=== PATIENT | female | born 1950 | race Caucasian/White ===

== ENCOUNTER 2024-04-21 07:26 | Inpatient (IN) | payer OTHER ==
[~2024-04-21] VITALS: Ht 160 cm; Wt 83.0 kg
[2024-04-21] MEDS ORDERED: ACETAMINOPHEN 500 MG TABLET ONE ×2 (07:44→07:45)
[2024-04-21] MEDS ORDERED: CELECOXIB 100 MG CAPSULE ONE (07:44)
[2024-04-21] MEDS ORDERED: oxyCODONE HCL 10 MG TAB.ER.12H PO ONE (07:45)
[2024-04-21] MEDS ORDERED: CEFAZOLIN SOD 2 GM in D5W 50 ML IV ONE (07:45)
[2024-04-21] MEDS ORDERED: GABAPENTIN 300 MG CAPSULE PO ONE (07:45)
[2024-04-21] MEDS ORDERED: SCOPOLAMINE HYDROBROMIDE 1 MG PATCH .72 H (TRANSDERM-SCOP) TD ONE (07:45)
[2024-04-21] MEDS: ACETAMINOPHEN 500 MG TABLET PO ONE (08:23)
[2024-04-21] MEDS: CELECOXIB 100 MG CAPSULE PO ONE (08:23)
[2024-04-21] MEDS: GABAPENTIN 300 MG CAPSULE ONE (08:23)
[2024-04-21] MEDS: SCOPOLAMINE HYDROBROMIDE 1 MG PATCH .72 H (TRANSDERM-SCOP) TD ONE (08:23)
[2024-04-21 08:58] VITALS: PULSE 78; RESP 20; TEMP 98.7; O2SAT 99
[2024-04-21] MEDS: oxyCODONE HCL 10 MG TAB.ER.12H PO ONE (09:44)
[2024-04-21] MEDS ORDERED: DEXAMETHASONE SOD PHOSPHATE 4 MG/ML VIAL ONE (09:50)
[2024-04-21] MEDS ORDERED: LR 1,000 ML IV SCH (10:45)
[2024-04-21] MEDS ORDERED: HYDROmorphone 1 MG/ML INJ. CARTRIDGE IVP PRN ×3 (10:45→11:00)
[2024-04-21] MEDS ORDERED: MEPERIDINE HCL/PF 25 MG/ML DISP.SYRIN IVP PRN (10:45)
[2024-04-21] MEDS ORDERED: METOCLOPRAMIDE HCL 10 MG/2 ML VIAL IVP PRN ×2 (10:45→12:15)
[2024-04-21] MEDS ORDERED: LORATADINE 10 MG TABLET PO PRN (11:00)
[2024-04-21] MEDS ORDERED: oxyCODONE HCL 5 MG TABLET PO PRN ×2 (11:00)
[2024-04-21] MEDS ORDERED: traMADol HCL HCL 50 MG TABLET (ULTRAM) PO PRN (11:00)
[2024-04-21] MEDS ORDERED: ceFAZolin SODIUM 2 GM in D5W 50 ML IV SCH (11:15)
[2024-04-21] MEDS ORDERED: ONDANSETRON HCL 4 MG/2 ML VIAL IVP PRN (11:45)
[2024-04-21 12:15] VITALS: BP_SYST 144
[2024-04-21] MEDS ORDERED: BISACODYL 10 MG/SUPPOSITORY RC PRN (12:15)
[2024-04-21] MEDS ORDERED: NALOXONE HCL 0.4 MG/ML AMP (NARCAN) IVP PRN ×3 (12:15)
[2024-04-21] MEDS ORDERED: LACTULOSE 20 GM/30 ML UDC PO PRN (12:15)
[2024-04-21] MEDS ORDERED: DIPHENHYDRAMINE HCL 25 MG CAPSULE PO PRN (12:15)
[2024-04-21] MEDS ORDERED: HYDROmorphone 1 MG/ML INJ. CARTRIDGE ONE ×2 (12:58→14:54)
[2024-04-21] MEDS: HYDROmorphone 1 MG/ML INJ. CARTRIDGE IVP PRN ×2 (13:00→15:30)
[2024-04-21] MEDS ORDERED: ACETAMINOPHEN 500 MG TABLET PO SCH (14:00)
[2024-04-21] MEDS ORDERED: KETOROLAC TROMETHAMINE 10 MG TABLET (TORADOL) PO SCH (14:00)
[2024-04-21] MEDS ORDERED: SENNOSIDES/DOCUSATE SODIUM 1 TAB TABLET(SENOKOT-S) PO SCH (21:00)
[2024-04-22] MEDS ORDERED: ASPIRIN 81 MG TAB.CHEW PO SCH (09:00)
[2024-04-22] MEDS ORDERED: CELECOXIB 200 MG CAPSULE PO SCH (11:00)
== END 2024-04-21 15:45 | disposition home health service (06) | DRG 470 ==
LOC: SMU 07:26
PROVIDERS: ADMIT Student in an Organized Health Care Education/Training Program; ATTEND Student in an Organized Health Care Education/Training Program
PROC: 0SRC0J9 Replacement of Right Knee Joint with Synthetic Substitute, Cemented, Open Approach (ICD-10-PCS; principal; 2024-04-21 09:52)
DX: M17.11 Unilateral primary osteoarthritis, right knee (principal); Z79.899 Other long term (current) drug therapy
CPT/HCPCS: 73560; 87081; 88305; 88311; 97110-GP; 97116-GP; 97530-GP; C1776; J0690; J0696; J1100; J1170; J2405; J3010; J3370; J3465; J3490; J7060; J7120

== ENCOUNTER 2024-05-06 10:36 | Emergency (ER) | payer OTHER ==
[~2024-05-06] VITALS: Ht 160 cm; Wt 83.0 kg
[2024-05-06 10:56] VITALS: BP_SYST 118; PULSE 87; RESP 16; TEMP 97.5; O2SAT 97
[2024-05-06 11:28] LABS: BASOPHILS # (AUTO) 0.1 K/uL (0.0-0.2); BASOPHILS % (AUTO) 0.9 % (0.0-2.0); EOSINOPHILS # (AUTO) 0.2 K/uL (0.0-0.4); EOSINOPHILS % (AUTO) 2.9 % (0.0-4.0); HEMATOCRIT 34.5 % (36-48); HEMOGLOBIN 11.4 g/dL (12.0-16.0); LYMPHOCYTES # (AUTO) 1.4 K/uL (1.0-5.5); LYMPHOCYTES % (AUTO) 21.3 % (20.5-51.5); MEAN CORPUSCULAR HEMOGLOBIN 30 pg (27-31); MEAN CORPUSCULAR HGB CONC 33 % (32-36); MEAN CORPUSCULAR VOLUME 92 fL (79.0-98.0); MONOCYTES # (AUTO) 0.6 K/uL (0.0-1.0); MONOCYTES % (AUTO) 9.1 % (1.7-9.3); NEUTROPHILS # (AUTO) 4.2 K/uL (1.8-7.7); NEUTROPHILS % (AUTO) 65.8 % (40.0-70.0); PLATELET COUNT (AUTO) 397 K/uL (130-430); RED BLOOD CELL COUNT(AUTO) 3.76 MIL/uL (4.2-6.2); RED CELL DISTRIBUTION WIDTH 15.7 % (9.0-15.0); WHITE BLOOD COUNT (AUTO) 6.4 K/uL (4.8-10.8)
[2024-05-06 11:32] LABS: ERYTHROCYTE SEDIMENTATION RATE 73 MM/HR (0-20)
[2024-05-06] MEDS ORDERED: CEPH-548 PO (13:11)
[2024-05-06] MEDS: cefTRIAXone 1 GM VIAL IM ONE (13:27)
[2024-05-06 13:35] VITALS: BP_SYST 118; PULSE 87; RESP 16; TEMP 97.5; O2SAT 97
== END 2024-05-06 13:35 | disposition home or self-care (01) ==
LOC: SED 10:36
DX: L03.115 Cellulitis of right lower limb (principal)
CPT/HCPCS: 99285; 93971; 85025; 85651; 36415; 96372; 82397; J0696

== ENCOUNTER 2024-05-29 15:30 | Inpatient (IN) | payer OTHER ==
[~2024-05-29] VITALS: Ht 160 cm; Wt 83.1 kg
[~2024-05-29 15:30] MED LIST: CEPH-548 PO
[2024-05-29 15:50] VITALS: BP_SYST 139; PULSE 93; RESP 18; TEMP 98.3; O2SAT 98
[2024-05-29] MEDS ORDERED: AMPICILLIN SODIUM/SULBACTAM NA 3 GM VIAL ONE (21:03)
[2024-05-29] MEDS ORDERED: VANCOMYCIN HCL 1000 MG/VIAL IV ONE (21:04)
[2024-05-29] MEDS: KETOROLAC TROMETHAMINE 30 MG VIAL IVP ONE (21:06)
[2024-05-29] MEDS: AMPICILLIN SODIUM/SULBACTAM NA 3 GM in NS 100 ML IV ONE (21:06)
[2024-05-29 21:09] LABS: BASOPHILS # (AUTO) 0.1 K/uL (0.0-0.2); BASOPHILS % (AUTO) 1.5 % (0.0-2.0); EOSINOPHILS # (AUTO) 0.3 K/uL (0.0-0.4); EOSINOPHILS % (AUTO) 4.4 % (0.0-4.0); HEMATOCRIT 29.6 % (36-48); HEMOGLOBIN 10.2 g/dL (12.0-16.0); LYMPHOCYTES # (AUTO) 1.9 K/uL (1.0-5.5); MEAN CORPUSCULAR HEMOGLOBIN 32 pg (27-31); MEAN CORPUSCULAR HGB CONC 35 % (32-36); MEAN CORPUSCULAR VOLUME 92 fL (79.0-98.0); MONOCYTES # (AUTO) 0.7 K/uL (0.0-1.0); MONOCYTES % (AUTO) 11.4 % (1.7-9.3); NEUTROPHILS # (AUTO) 3.1 K/uL (1.8-7.7); NEUTROPHILS % (AUTO) 51.7 % (40.0-70.0); PLATELET COUNT (AUTO) 232 K/uL (130-430); RED BLOOD CELL COUNT(AUTO) 3.22 MIL/uL (4.2-6.2); RED CELL DISTRIBUTION WIDTH 17.1 % (9.0-15.0); WHITE BLOOD COUNT (AUTO) 6.1 K/uL (4.8-10.8)
[2024-05-29 21:27] LABS: ALANINE AMINOTRANSFERASE 66 U/L (12-78); ALBUMIN 3.1 g/dL (3.4-4.8); ANION GAP 9 (5-15); ASPARTATE AMINOTRANSFERASE 26 U/L (10-37); BILIRUBIN,DIRECT 0.1 mg/dL (0.0-0.3); CALCIUM 9.3 mg/dL (8.4-11.0); CARBON DIOXIDE 26 mmol/L (23-29); CHLORIDE 108 mmol/L (98-107); CREATININE 0.99 mg/dL (0.55-1.30); GLUCOSE 85 mg/dL (74-106); POTASSIUM 4.2 mmol/L (3.5-5.1); SODIUM SERUM 143 mmol/L (136-145); TOTAL BILIRUBIN 0.4 mg/dL (0.0-1.0); TOTAL PROTEIN, SERUM 6.3 g/dL (6.4-8.3); UREA NITROGEN, BLOOD 26 mg/dL (8-21)
[2024-05-29] MEDS: VANCOMYCIN HCL 1,000 MG in NS 250 ML IV ONE (21:31)
[2024-05-29] MEDS ORDERED: ONDANSETRON HCL 4 MG/2 ML VIAL IVP PRN (22:00)
[2024-05-29] MEDS ORDERED: MORPHINE 2 MG/ML INJ. SYRINGE IVP PRN (22:00)
[2024-05-29 22:30] VITALS: BP_SYST 147; PULSE 75; RESP 18; TEMP 98.7; O2SAT 99
[2024-05-30] VITALS (8 sets, daily range): BP systolic 123–147; PULSE 75–85; RESP 15–18; TEMP 97.1–98.7; O2SAT 94–99
[2024-05-30] MEDS ORDERED: ALBUTEROL SULFATE 0.083% 2.5 MG/3 ML VIAL.NEB INH PRN (00:45)
[2024-05-30] MEDS: NACL 0.9% 1,000 ML IV SCH (01:27)
[2024-05-30] MEDS: hydrALAZINE HCL 20 MG/ML VIAL IVP PRN (01:32)
[2024-05-30] MEDS: AMPICILLIN SODIUM/SULBACTAM NA 1.5 GM VIAL ONE (05:20)
[2024-05-30] MEDS: AMPICILLIN SODIUM/SULBACTAM NA 1.5 GM in NS 50 ML IV SCH (05:26)
[2024-05-30 11:42] LABS: BASOPHILS # (AUTO) 0.1 K/uL (0.0-0.2); BASOPHILS % (AUTO) 1.7 % (0.0-2.0); EOSINOPHILS # (AUTO) 0.2 K/uL (0.0-0.4); EOSINOPHILS % (AUTO) 3.6 % (0.0-4.0); HEMATOCRIT 31.2 % (36-48); HEMOGLOBIN 10.2 g/dL (12.0-16.0); LYMPHOCYTES # (AUTO) 1.2 K/uL (1.0-5.5); LYMPHOCYTES % (AUTO) 24.1 % (20.5-51.5); MEAN CORPUSCULAR HEMOGLOBIN 31 pg (27-31); MEAN CORPUSCULAR HGB CONC 33 % (32-36); MONOCYTES # (AUTO) 0.6 K/uL (0.0-1.0); MONOCYTES % (AUTO) 11.8 % (1.7-9.3); NEUTROPHILS # (AUTO) 2.9 K/uL (1.8-7.7); NEUTROPHILS % (AUTO) 58.8 % (40.0-70.0); PLATELET COUNT (AUTO) 242 K/uL (130-430); RED BLOOD CELL COUNT(AUTO) 3.33 MIL/uL (4.2-6.2); RED CELL DISTRIBUTION WIDTH 17.2 % (9.0-15.0); WHITE BLOOD COUNT (AUTO) 4.9 K/uL (4.8-10.8)
[2024-05-30 11:51] LABS: ALANINE AMINOTRANSFERASE 57 U/L (12-78); ALBUMIN 2.9 g/dL (3.4-4.8); ANION GAP 11 (5-15); ASPARTATE AMINOTRANSFERASE 21 U/L (10-37); CARBON DIOXIDE 23 mmol/L (23-29); CHLORIDE 108 mmol/L (98-107); CREATININE 0.69 mg/dL (0.55-1.30); GLUCOSE 82 mg/dL (74-106); POTASSIUM 3.9 mmol/L (3.5-5.1); SODIUM SERUM 142 mmol/L (136-145); TOTAL BILIRUBIN 0.5 mg/dL (0.0-1.0); TOTAL PROTEIN, SERUM 5.9 g/dL (6.4-8.3); UREA NITROGEN, BLOOD 18 mg/dL (8-21)
[2024-05-30 12:06] LABS: MEAN CORPUSCULAR VOLUME 94 fL (79.0-98.0)
[2024-05-30] MEDS: HYDROcodone/ACETAMIN 5-325 MG TAB (NORCO/ VICODIN) PO PRN (12:43)
[2024-05-30] MEDS: ENOXAPARIN SODIUM 30 MG/0.3 ML SYRINGE SUBCUT ONE (17:48)
[2024-05-30] MEDS: VANCOMYCIN HCL 1.25 GM/NS 250 ML IV SCH (20:02)
[2024-05-31] VITALS (7 sets, daily range): BP systolic 121–146; PULSE 74–82; RESP 13–18; TEMP 97.1–99.1; O2SAT 95–99
[2024-05-31 07:49] LABS: ALANINE AMINOTRANSFERASE 48 U/L (12-78); ALBUMIN 2.8 g/dL (3.4-4.8); ANION GAP 7 (5-15); ASPARTATE AMINOTRANSFERASE 21 U/L (10-37); CALCIUM 9.2 mg/dL (8.4-11.0); CARBON DIOXIDE 26 mmol/L (23-29); CHLORIDE 111 mmol/L (98-107); CREATININE 0.73 mg/dL (0.55-1.30); GLUCOSE 91 mg/dL (74-106); POTASSIUM 4.1 mmol/L (3.5-5.1); SODIUM SERUM 144 mmol/L (136-145); TOTAL BILIRUBIN 0.4 mg/dL (0.0-1.0); TOTAL PROTEIN, SERUM 6.1 g/dL (6.4-8.3); UREA NITROGEN, BLOOD 11 mg/dL (8-21)
[2024-05-31] MEDS: ENOXAPARIN SODIUM 30 MG/0.3 ML SYRINGE SUBCUT SCH (08:28)
[2024-05-31 08:38] LABS: BASOPHILS # (AUTO) 0.1 K/uL (0.0-0.2); BASOPHILS % (AUTO) 1.2 % (0.0-2.0); EOSINOPHILS # (AUTO) 0.3 K/uL (0.0-0.4); HEMATOCRIT 31.1 % (36-48); HEMOGLOBIN 10.6 g/dL (12.0-16.0); LYMPHOCYTES # (AUTO) 1.5 K/uL (1.0-5.5); LYMPHOCYTES % (AUTO) 25.7 % (20.5-51.5); MEAN CORPUSCULAR HEMOGLOBIN 32 pg (27-31); MEAN CORPUSCULAR HGB CONC 34 % (32-36); MONOCYTES # (AUTO) 0.8 K/uL (0.0-1.0); MONOCYTES % (AUTO) 12.9 % (1.7-9.3); NEUTROPHILS # (AUTO) 3.3 K/uL (1.8-7.7); NEUTROPHILS % (AUTO) 55.2 % (40.0-70.0); PLATELET COUNT (AUTO) 249 K/uL (130-430); RED BLOOD CELL COUNT(AUTO) 3.37 MIL/uL (4.2-6.2); WHITE BLOOD COUNT (AUTO) 5.9 K/uL (4.8-10.8)
[2024-05-31 08:43] LABS: MEAN CORPUSCULAR VOLUME 92 fL (79.0-98.0)
[2024-06-01 01:26] VITALS: BP_SYST 121; PULSE 87; RESP 18; TEMP 97.6; O2SAT 96
[2024-06-01] MEDS: ACETAMINOPHEN 325 MG TABLET PO PRN (05:21)
[2024-06-01 07:13] LABS: BASOPHILS # (AUTO) 0.1 K/uL (0.0-0.2); BASOPHILS % (AUTO) 1.2 % (0.0-2.0); EOSINOPHILS # (AUTO) 0.4 K/uL (0.0-0.4); EOSINOPHILS % (AUTO) 5.8 % (0.0-4.0); HEMATOCRIT 30.1 % (36-48); HEMOGLOBIN 10.4 g/dL (12.0-16.0); LYMPHOCYTES # (AUTO) 1.4 K/uL (1.0-5.5); LYMPHOCYTES % (AUTO) 22.4 % (20.5-51.5); MEAN CORPUSCULAR HEMOGLOBIN 32 pg (27-31); MEAN CORPUSCULAR HGB CONC 34 % (32-36); MEAN CORPUSCULAR VOLUME 93 fL (79.0-98.0); MONOCYTES # (AUTO) 0.8 K/uL (0.0-1.0); MONOCYTES % (AUTO) 12.8 % (1.7-9.3); NEUTROPHILS # (AUTO) 3.5 K/uL (1.8-7.7); NEUTROPHILS % (AUTO) 57.8 % (40.0-70.0); PLATELET COUNT (AUTO) 234 K/uL (130-430); RED BLOOD CELL COUNT(AUTO) 3.25 MIL/uL (4.2-6.2); RED CELL DISTRIBUTION WIDTH 16.8 % (9.0-15.0); WHITE BLOOD COUNT (AUTO) 6.1 K/uL (4.8-10.8)
[2024-06-01 07:27] LABS: ALANINE AMINOTRANSFERASE 41 U/L (12-78); ALBUMIN 2.7 g/dL (3.4-4.8); ANION GAP 9 (5-15); ASPARTATE AMINOTRANSFERASE 17 U/L (10-37); CALCIUM 9.3 mg/dL (8.4-11.0); CARBON DIOXIDE 24 mmol/L (23-29); CHLORIDE 110 mmol/L (98-107); CREATININE 0.79 mg/dL (0.55-1.30); GLUCOSE 97 mg/dL (74-106); POTASSIUM 3.6 mmol/L (3.5-5.1); SODIUM SERUM 143 mmol/L (136-145); TOTAL BILIRUBIN 0.4 mg/dL (0.0-1.0); TOTAL PROTEIN, SERUM 5.9 g/dL (6.4-8.3); UREA NITROGEN, BLOOD 15 mg/dL (8-21)
[2024-06-01 08:09] VITALS: O2SAT 99
[2024-06-01 12:41] VITALS: BP_SYST 132; PULSE 87; RESP 17; TEMP 97.8; O2SAT 97
[2024-06-01] MEDS ORDERED: AUG875 PO (14:27)
[2024-06-01 15:17] VITALS: BP_SYST 125; PULSE 78; RESP 18; TEMP 98.6; O2SAT 99
== END 2024-06-01 16:10 | disposition home or self-care (01) | DRG 603 ==
LOC: SED 15:30 → SMU 21:56
PROVIDERS: ADMIT Family Medicine; ATTEND Family Medicine
DX: L03.115 Cellulitis of right lower limb (principal); L97.919 Non-pressure chronic ulcer of unspecified part of right lower leg with unspecified severity; I87.2 Venous insufficiency (chronic) (peripheral); Z96.651 Presence of right artificial knee joint; Z79.899 Other long term (current) drug therapy; S81.811A Laceration without foreign body, right lower leg, initial encounter
CPT/HCPCS: 36415; 80048; 80053; 80076; 85025; 87040; 93970; 94760; 96374; 97112-GP; 97116-GP; 99285; J0295; J0360; J1650; J1885; J3370